=== PATIENT | male | born 1945 | race Caucasian/White ===

== ENCOUNTER 2022-10-27 13:18 | Emergency (ER) | payer OTHER, MEDICARE ==
[~2022-10-27] VITALS: Ht 182.9 cm; Wt 91.6 kg
--- NOTE | 2022-10-27 13:35 | NUR ---
PT BIBA, AWAKE AND ALERT AOX3. NO SOB OR DISTRESS. PT WAS BROUGHT IN FROM [facility], BECAUSE PT PULLED OUT HIS PIC LINE THAT WAS USED TO ADMINISTER ABX FOR WOUND TO HIS LEFT FOOT. PT HAS WOUND VAC MACHINE AT BEDSIDE. PT HAS HX OS PYCHOSIS, GOUT, DM2, AUTISIC, ANEMENIA, HLD.
--- NOTE | 2022-10-27 13:36 | NUR ---
MD DR CAM AT BEDSIDE
[2022-10-27] MEDS ORDERED: BACITRACIN 1 GM OINT TP ONE (16:38)
--- NOTE | 2022-10-27 19:34 | NUR ---
REPORT GIVEN TO JYOTHI JIMENEZ, PT CELSO.
--- NOTE | 2022-10-27 19:40 | NUR ---
Receive in bed NAD. PICC line placed by PICC nurse and verified placement via x-ray. Pt comfortable at this time. Wound vac noted on the left foot.
--- NOTE | 2022-10-27 20:45 | NUR ---
DAUGHTER IN LAW UPDATED ON PATIENT STATUS. SHE IS AWARE PATIENT WILL BE RETURNING TO SNF. STATES SHE IS POA WITH FOR PATIENT. AGREED TO SEND PATIENT HOME.
--- NOTE | 2022-10-27 20:57 | NUR ---
Patient given written and verbal discharge instructions and verbalizes understanding. ER MD Dr. Maza discussed with patient the results and treatment provided. Patient in stable condition. ID arm band removed. PICC line on R upper arm noted to go to SNF. Spoke with Sarah at [facility] and notified of the pt coming back to the facility. sydnee Bloomly, also aware. Patient educated on pain management and to follow up with PMD. Pain Scale 0. Opportunity for questions provided and answered. Medication side effect fact sheet provided. Pt left with wound vac attached to L foot. Pt left with via [facility] with 2 superintendent service via [facility].
[2022-10-27 21:06] VITALS: BP_SYST 120
== END 2022-10-27 20:57 ==
LOC: SED 13:18
DX: Z45.2 Encounter for adjustment and management of vascular access device (principal); Z79.899 Other long term (current) drug therapy
CPT/HCPCS: 71045; 99283